=== PATIENT | male | born 1985 | race Caucasian/White ===

== ENCOUNTER 2021-11-03 11:24 | Inpatient (IN) | payer OTHER ==
[2021-11-03 13:12] LABS: BASO % 0.9 % (0-2.0); EOS % 1.5 % (0-4.5); HEMATOCRIT 39.9 % (35.4-49); HEMOGLOBIN 13.1 GM/dL (11.7-16.9); LYMPH % 31.4 % (8-40); MCHC 32.9 g/dl (32.0-35.9); MEAN CELL VOLUME 82.1 fl (80-96); MEAN PLT VOLUME 8.8 fl (7.5-11.1); MONO % 13.1 % (3.8-10.2); NEUT % 53.1 % (42.8-82.8); PLATELET COUNT 208 10^3/uL (134-434); RBC 4.86 M/mm3 (4.00-5.60); RDW 13.7 % (11.9-15.9); WHITE BLOOD COUNT 3.6 K/mm3 (4.0-10.0)
[2021-11-03 13:17] LABS: INR 1.1 (0.83-1.09); PROTHROMBIN TIME (PATIENT) 12.7 SEC (9.7-13.0)
[2021-11-03 13:20] LABS: ACTIVATED PTT 31.9 SECONDS (25.2-36.5)
[2021-11-03 13:31] LABS: CALCIUM 9.1 mg/dL (8.5-10.1)
[2021-11-03 13:32] LABS: ALBUMIN 4.1 g/dl (3.4-5.0); BLOOD UREA NITROGEN 19.4 mg/dL (7-18); MAGNESIUM 2.3 mg/dL (1.8-2.4)
[2021-11-03] MEDS ORDERED: ASPIRIN 81 MG CHEWABLE TABLETS PO ONE (13:32)
[2021-11-03 13:35] LABS: PHOSPHOROUS 3.3 mg/dL (2.5-4.9)
[2021-11-03 13:36] LABS: CREATININE 0.9 mg/dL (0.55-1.3)
[2021-11-03 13:37] LABS: BILIRUBIN,TOTAL 0.7 mg/dL (0.2-1); TOT PROT 7.4 g/dl (6.4-8.2)
[2021-11-03] MEDS ORDERED: CLOPIDOGREL BISULFATE 300 MG TABLET PO ONE (13:38)
[2021-11-03] MEDS ORDERED: ENOXAPARIN NA (PORCINE) 80 MG/0.8 ML DISP.SYRIN SQ ONE ×2 (13:38→13:48)
[2021-11-03] MEDS ORDERED: ATORVASTATIN CA 80 MG TABLET (FP) PO ONE (13:39)
[2021-11-03 13:43] LABS: N-TERMINAL BNP 50.8 pg/ml (5-125)
[2021-11-03] MEDS ORDERED: CLOPIDOGREL BISULFATE 300 MG TABLET ONE (13:47)
[2021-11-03] MEDS ORDERED: ASPIRIN 81 MG CHEWABLE TABLETS ONE (13:48)
[2021-11-03] MEDS ORDERED: ATORVASTATIN CA 80 MG TABLET (FP) ONE (13:48)
[2021-11-04 06:46] LABS: PHENCYCLIDINE,URINE NEGATIVE (NEGATIVE); URINE BARBITURATES NEGATIVE (NEGATIVE); URINE BENZODIAZEPINES NEGATIVE (NEGATIVE)
[2021-11-04 06:47] LABS: BASO % 1.5 % (0-2.0); EOS % 3.4 % (0-4.5); HEMATOCRIT 40.1 % (35.4-49); MCH 26.5 pg (25.7-33.7); MCHC 32.5 g/dl (32.0-35.9); MEAN CELL VOLUME 81.4 fl (80-96); MEAN PLT VOLUME 9.5 fl (7.5-11.1); MONO % 14.1 % (3.8-10.2); PLATELET COUNT 216 10^3/uL (134-434); RBC 4.92 M/mm3 (4.00-5.60); RDW 13.4 % (11.9-15.9); WHITE BLOOD COUNT 3.5 K/mm3 (4.0-10.0)
[2021-11-04 06:47] LABS: COCAINE, UR NEGATIVE (NEGATIVE); METHADONE, UR NEGATIVE (NEGATIVE); URINE AMPHETAMINES NEGATIVE (NEGATIVE)
[2021-11-04 06:48] LABS: OPIATES, URI NEGATIVE (NEGATIVE)
[2021-11-04 06:54] LABS: INR 1.16 (0.83-1.09); PROTHROMBIN TIME (PATIENT) 13.4 SEC (9.7-13.0)
[2021-11-04 06:56] LABS: ACTIVATED PTT 32.8 SECONDS (25.2-36.5)
[2021-11-04 07:03] LABS: CALCIUM 8.3 mg/dL (8.5-10.1); MAGNESIUM 2.2 mg/dL (1.8-2.4)
[2021-11-04 07:05] LABS: ALBUMIN 3.5 g/dl (3.4-5.0); BLOOD UREA NITROGEN 21.8 mg/dL (7-18)
[2021-11-04 07:07] LABS: CREATININE 0.9 mg/dL (0.55-1.3)
[2021-11-04 07:08] LABS: PHOSPHOROUS 4.1 mg/dL (2.5-4.9)
[2021-11-04 07:09] LABS: TOT PROT 6.5 g/dl (6.4-8.2)
[2021-11-04 07:10] LABS: BILIRUBIN,TOTAL 0.7 mg/dL (0.2-1)
[2021-11-04] MEDS ORDERED: CLOPIDOGREL BISULFATE 75 MG TABLET (FP) PO SCH (10:00)
[2021-11-04] MEDS ORDERED: ASPIRIN 81 MG CHEWABLE TABLETS PO SCH (10:00)
[2021-11-04] MEDS ORDERED: CLOPIDOGREL BISULFATE 75 MG TABLET (FP) ONE (10:57)
[2021-11-04] MEDS ORDERED: ASPIRIN COATED 81 MG TABLET.EC ONE (10:57)
[2021-11-04 19:31] VITALS: BMI 22.8
[2021-11-04] MEDS ORDERED: ATORVASTATIN CA 80 MG TABLET (FP) PO SCH (22:00)
[2021-11-04 23:05] VITALS: BP 124/51; PULSE 56; TEMP 98.6
== END 2021-11-04 23:07 | disposition short-term general hospital (02) | DRG 282 ==
LOC: JER 11:24 → UNDOADMOB 21:40 → JERBED 21:40 → INTOOBSV 21:40 → JERBED 23:38 → OBSVTOIN 11-04 09:58 → J4W 11-04 16:04
PROVIDERS: ADMIT Internal Medicine; ATTEND Internal Medicine
DX: I21.09 ST elevation (STEMI) myocardial infarction involving other coronary artery of anterior wall (principal); Z87.891 Personal history of nicotine dependence; R73.03 Prediabetes
CPT/HCPCS: 36415; 71045-TC-FY; 80053; 80061; 80307; 83036; 83735; 83880; 84100; 84439; 84443; 84484; 85025; 85610; 85730; 86850; 86900; 86901; 93005; 93010; 93306-TC; 99285-25; C9803-CS; G0378; U0003; U0005